=== PATIENT | male | born 1990 | race Caucasian/White ===

== ENCOUNTER → 2021-05-10 | Outpatient (CLI) | payer OTHER | LOC: KOH-I 08:00 | DX: R10.11 Right upper quadrant pain (principal); R10.811 Right upper quadrant abdominal tenderness; R10.31 Right lower quadrant pain; K76.0 Fatty (change of) liver, not elsewhere classified | CPT/HCPCS: 76705 ==

== ENCOUNTER → 2021-06-14 | Outpatient (CLI) | payer OTHER | LOC: KOH-I 08:25 | DX: R10.31 Right lower quadrant pain (principal); R31.9 Hematuria, unspecified | CPT/HCPCS: 74176 ==